=== PATIENT | male | born 1975 | race Caucasian/White ===

== ENCOUNTER 2023-10-07 16:08 | Emergency (ER) | payer BC, SELFPAY ==
[2023-10-07] VITALS (7 sets, daily range): BP systolic 116–141; BP diastolic 73–94; BMI 26.8
--- NOTE | 2023-10-07 16:38 | ED.GENMED ---
History of Present Illness
General
Chief Complaint: Chest Pain
Time Seen by Provider: 10/07/23 16:38
History of Present Illness
History of Present Illness:
HPI: Patient presents with chest discomfort that started 6 days ago. He currently has no pain. It worsens when he changes position of his torso and worsens when he eats spicy foods. He does not have any tightness sensation. He has no exertional
symptoms. He does have rather extensive comorbidities as noted below.
EXAM:
GENERAL: Well appearing in no distress
HEENT: Moist oral mucosa
CARDIOVASCULAR: No murmurs, normal heart rate, regular rhythm, No chest wall tenderness
PULMONARY: No respiratory distress, breath sounds are clear and equal
ABDOMEN: Soft with no peritoneal signs, no tenderness
NEUROLOGIC: Excellent strength all extremities, no coordination deficits
PSYCHIATRIC: Appropriate mental status, normal insight and judgement
EXTREMITIES: Nontender, no edema, moves all extremities equally
SKIN: No rash, no lesions
TIME OF INITIAL ENCOUNTER: 4:45 PM
NUMBER AND COMPLEXITY OF PROBLEMS ADDRESSED AT THE ENCOUNTER
� Chronic conditions affecting care: Last kidney transplant 2009, CKD on HD, high blood pressure, hyperlipidemia, borderline diabetes
� Acute Exacerbation and/or Progression of Chronic Illness: This is an acute problem
� Differential Diagnosis includes: Noncardiac chest pain, GI etiology, esophagitis/gastritis, ACS
AMOUNT AND/OR COMPLEXITY OF DATA TO BE REVIEWED AND ANALYZED
� I performed an independent evaluation of and my interpretation is:
EKG: Sinus 65, left axis deviation, LVH with associated ST abnormality which includes biphasic abnormality in V3
CT:
X-rays: Chest x-ray unremarkable
Laboratory Studies: Troponin 0.609, creatinine 1.9, glucose normal, CBC unremarkable
Other:
� Review of other/old records: I reviewed records on the patient's [employer] vivian. I reviewed the cardiology note from 01/07/2021 which indicates that the patient's EKG at that time showed LVH with associated ST abnormality that was
felt to be related to strain as opposed to ischemia. An echo showed normal LV size but did have some concentric LVH of the wall
� Clinical information was obtained by an independent historian: I spoke to at bedside
� Prescriptions/Medications Considered but not given:
� Further testing considered but not performed:
RISK OF COMPLICATIONS AND/OR MORBIDITY OR MORTALITY OF PATIENT MANAGEMENT
� Social determinants of health affecting care: Lives at home with family
� Discussion with other providers: Discussed case with Dr. Manzo at [facility] as all of his care is at [facility]. He did send an old EKG which does show some inferolateral T wave abnormality likely related to LVH. He also states
that the patient had a nondiagnostic stress test in the past.
� Escalation of care including admission/observation vs risk of discharge considered: Since he is a kidney transplant patient with all care at [facility] including cardiology, Dr. Manzo accepts to his service for further evaluation
as he does have an elevated troponin. The troponin may be related to his CKD however I have no old troponins to compare and the troponin does seem a little bit higher than expected for just renal disease. I did order an aspirin for him to take
with further management at [facility]. He remains comfortable without current chest pain at 6:30 PM.
Phy Exam
Physical Exam
Physical Exam:
See HPI
Scores
Heart Score for Chest Pain Patients
STEMI patient?: Not applicable
Course
Orders/Labs/Results
Orders:
Orders
10/07/23 16:22
EKG [Electrocardiogram (*1)] Urgent
Reason for Study: Chest Pain
EKG- Treatment ONCE
10/07/23 16:40
CR Chest - 2 Views Urgent
Comment:
Reason For Exam: cp
10/07/23 16:48
Complete Blood Count/With Diff Urgent
Comprehensive Metabolic Panel Urgent
Magnesium Urgent
Troponin I Urgent
10/07/23 17:50
Aspirin 325 mg PO NOW STA
Abnormal Lab Results
10/07/23
16:48
Absolute Monos (auto) 0.9 H 10^3/uL
(0.1-0.6)
Chloride 108 H mmol/L
(98-107)
BUN 38 H mg/dl
(9-20)
Creatinine 1.9 H mg/dL
(0.7-1.3)
Calcium 10.7 H mg/dl
(8.4-10.2)
Troponin I 0.609 H* ng/ml
10/07/23 16:48
10/07/23 16:48
Vital Signs
Initial and Last Documented VS:
Initial Vital Signs
Temp Pulse Resp BP Pulse Ox
98.2 F 71 18 141/94 98
10/07/23 16:18 10/07/23 16:18 10/07/23 16:18 10/07/23 16:18 10/07/23 16:18
Last Documented Vital Signs
Temp Pulse Resp BP Pulse Ox
98.7 F 67 12 127/85 98
10/07/23 18:55 10/07/23 19:00 10/07/23 19:00 10/07/23 19:00 10/07/23 18:55
*Critical Care Note
Total Time (30-74mins, 75-104mins- exclusive of procedures): Not Applicable
ED Attending Note
-
Portions of this chart may have been created with voice recognition software.� Occasional wrong word or��sound alike� substitutions may have occurred due to the inherent limitations of voice recognition software.
Discharge Plan
Departure
Patient Disposition: Acute Care Hospital
Date of Disposition: 10/07/23
Time of Disposition: 18:04
Patient with high blood pressure during this ER visit?: Yes
Discharge Problem:
Elevated troponin level
Prescriptions:
No Action
carvedilol 25 mg Tablet
25 mg PO Q12H
prednisone 5 mg Tablet
5 mg PO DAILY
amlodipine 5 mg Tablet
5 mg PO BID
acetaminophen [Tylenol Extra Strength] 500 mg Tablet
1,000 mg PO BID
acitretin 25 mg Capsule
25 mg PO DAILY
allopurinol 300 mg Tablet
150 mg PO HS
albuterol sulfate 90 mcg/actuation Hfa Aerosol Inhaler
2 puff INHALATION R DAILYPRN PRN (Reason: sob)
tacrolimus 1 mg Capsule
3 mg PO BID
mycophenolate sodium 180 mg Tablet,Delayed Release (Dr/Ec)
180 mg PO Q12H
fenofibrate 160 mg Tablet
160 mg PO DAILY
Referrals:
Heriberto Church MD [Family Provider] -
Hospital Transfer
Other hospital: [facility]
I certify that the patient requires transfer: Yes
Discussed case with accepting physician: Dr. Ant Prieto
Reason for transfer: higher level of care and continuity of care PCP
Interventions
Interventions:
*Risk Screen - Suicide Last Done: 10/07/23 16:35
*General Assessment Last Done: 10/07/23 16:35
*Neglect/Abuse Screening Last Done: 10/07/23 16:35
ED- Fall Risk Assessment Last Done: 10/07/23 16:35
*ED COVID-19 Vaccine History Last Done: 10/07/23 16:35
ED- Cardiac Assessment Last Done: 10/07/23 19:01
Discharge Date and Time
Print Language: TURKISH
[2023-10-07 17:04] LABS: % Basophils 0.5 % (0-2); % Eosinophils 1.6 % (0-6); % Immature Granulocytes 0.4 % (0-0.5); % Lymphocytes 26.3 % (20.5-51.1); % Monocytes 8.3 % (1.7-9.3); % Neutrophils 62.9 % (42.2-75.2); Absolute Basophils 0.1 10^3/uL (0-0.2); Absolute Eosinophils 0.2 10^3/uL (0-0.7); Absolute Lymphocytes 2.7 10^3/uL (1.2-3.4); Absolute Monocytes 0.9 10^3/uL (0.1-0.6); Absolute Neutrophils 6.5 10^3/uL (1.4-6.5); Hemoglobin 14.7 g/dL (13.0-18.0); Mean Corp Hgb Conc. 33.4 g/dL (33.0-37.0); Mean Corpuscular Hgb 30.4 pg (27.0-31.0); Mean Corpuscular Volume 91.1 fL (80.0-94.0); Mean Platelet Volume 9.5 fL (7.4-10.4); Nucleated Red Blood Cells % 0 % (-); Platelet Count 236 10^3/uL (130-400); Red Blood Cell Count 4.83 10^6/uL (4.70-6.10); Red Cell Dist. Width 13.2 % (11.5-14.5); White Blood Cell Count 10.3 10^3/uL (4.8-10.8)
[2023-10-07 17:21] LABS: ALT (SGPT) 22 U/L (0-50); AST (SGOT) 27 U/L (17-59); Albumin 4.9 g/dl (3.5-5.0); Alkaline Phosphatase 52 U/L (38-126); Blood Urea Nitrogen 38 mg/dl (9-20); Calcium 10.7 mg/dl (8.4-10.2); Carbon Dioxide 24 mmol/L (22-30); Chloride 108 mmol/L (98-107); Estimated Creatinine Clearance 42 ml/min; Glucose 95 mg/dl (70-99); Magnesium 1.7 mg/dl (1.6-2.3); Potassium 4.6 mmol/L (3.5-5.1); Sodium 142 mmol/L (135-145); Total Bilirubin 0.4 mg/dl (0.2-1.3); Total Protein 7.6 g/dl (6.3-8.2); eGFR 43.24
[2023-10-07 17:31] LABS: Troponin I 0.609 ng/ml
[2023-10-07] MEDS: ASPIRIN 325 MG PO (17:55)
== END 2023-10-07 21:39 | disposition short-term general hospital (02) ==
LOC: EMR 16:08
PROVIDERS: EMERGENCY PHYSICIAN Emergency Medicine; FAMILY PHYSICIAN Internal Medicine
DX: R07.89 Other chest pain (principal); R79.89 Other specified abnormal findings of blood chemistry; I12.0 Hypertensive chronic kidney disease with stage 5 chronic kidney disease or end stage renal disease; N18.6 End stage renal disease; Z99.2 Dependence on renal dialysis; E78.5 Hyperlipidemia, unspecified; R73.03 Prediabetes; Z94.0 Kidney transplant status; Z88.8 Allergy status to other drugs, medicaments and biological substances
CPT/HCPCS: 99285; 71046; 80053; 83735; 84484; 85025; 93005

== ENCOUNTER 2025-03-30 23:54 | Emergency (ER) | payer BC, SELFPAY ==
[2025-03-31 00:19] VITALS: BP 175/104
[2025-03-31 00:54] LABS: Hematocrit 32.7 % (39.0-52.0); Hemoglobin 10.3 g/dL (13.0-18.0); Mean Corp Hgb Conc. 31.5 g/dL (33.0-37.0); Mean Corpuscular Volume 87.7 fL (80.0-94.0); Nucleated Red Blood Cells % 0 % (-); Platelet Count 285 10^3/uL (130-400); Red Cell Dist. Width 14.6 % (11.5-14.5)
[2025-03-31 01:13] LABS: ALT (SGPT) 23 U/L (0-50); AST (SGOT) 26 U/L (17-59); Albumin 3.8 g/dl (3.5-5.0); Alkaline Phosphatase 71 U/L (38-126); Blood Urea Nitrogen 69 mg/dl (9-20); Calcium 9.7 mg/dl (8.4-10.2); Carbon Dioxide 19 mmol/L (22-30); Chloride 108 mmol/L (98-107); Glucose 86 mg/dl (70-99); Potassium 5.3 mmol/L (3.5-5.1); Sodium 137 mmol/L (135-145); Total Protein 6.1 g/dl (6.3-8.2); eGFR 25.87
[2025-03-31] MEDS: LOW STRENGTH ASPIRIN 324 MG PO (01:17)
[2025-03-31 01:20] VITALS: BP 144/84; BMI 27.5
[2025-03-31 01:32] LABS: Troponin I < 0.012 ng/ml
[2025-03-31 01:36] LABS: Lipase 66 U/L (23-300)
[2025-03-31] MEDS: NSS 1000 IV (02:08)
[2025-03-31 02:13] VITALS: BP 134/74
[2025-03-31 03:00] VITALS: BP 123/86
[2025-03-31 03:36] LABS: Troponin I < 0.012 ng/ml
[2025-03-31 04:00] VITALS: BP 136/90
--- NOTE | 2025-03-31 04:01 | ED.GENMED ---
History of Present Illness
General
Chief Complaint: Chest Pain
Source: patient and previous hospital records
Exam Limitations: none
Time Seen by Provider: 03/31/25 00:36
Nursing documentation reviewed up to this point in time: agreed with
History of Present Illness
History of Present Illness:
HISTORY OF PRESENT ILLNESS
The patient is a 49-year-old male with a significant past medical history including CAD status post three-vessel CABG October 2023, who presents with upper abdominal pain, described as feeling 'tight' and 'tender,' which has been occurring
intermittently for the past three days. The patient mentions the sensation could be 'heartburn' or possibly 'gas.' This pain has been noted to persist somewhat since his surgery October 2023. He also notes some left upper chest discomfort that has
been intermittent over the past 3 days and again intermittent since his heart surgery October 2023. The discomfort does not appear to be exacerbated or relieved by meals, activity, or positioning. The patient denies associated symptoms of significant
nausea or shortness of breath but reports a history of heartburn that has worsened after previous surgery. The patient also mentioned that taking antacid medication provided no significant relief.
The patient had a myocardial infarction in September 2023, with elevated troponin levels noted at that time. The patient underwent coronary artery bypass surgery was in October 2023. The patient has undergone stress cardiac testing approximately six months
ago, with indications that results were reassuring at that time.
He has history of chronic kidney disease status post renal transplant x 3, at the most recent transplant 2009. He follows with specialist at [facility].
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
He denies dysuria and urgency and or hematuria. He has not had a fever and or chills. No cough no shortness of breath. No dizziness nor lightheadedness. No leg pain or swelling.
Phy Exam
Physical Exam
Physical Exam:
GENERAL: 49-year-old gentleman appears his stated age, awake and alert, very mildly anxious/apprehensive but easily communicative and otherwise in no acute distress.
EYE: anicteric
NECK: Supple, nontender, no meningismus, no significant adenopathy.
ENT: oral mucosa is moist. No rhinorrhea.
CARDIAC: Regular rate and rhythm. no murmur. No palpable chest wall tenderness.
LUNGS: Clear breath sounds bilaterally, no acute respiratory distress, no wheezes/rales/rhonchi
ABDOMEN: Rotund, soft, nondistended, minimal tenderness epigastric region, no r/g, no cvat. normoactive BS.
NEUROLOGICAL: Alert and oriented x3, no focal neuro deficits.
SKIN: Warm and dry, normal color, skin intact. No rash.
MUSCULOSKELETAL: No C/C/E. peripheral pulses are full and equal b/l. No palpable tenderness.
PSYCH: Normal and appropriate interaction.
Scores
Heart Score for Chest Pain Patients
STEMI patient?: No
History: Slightly or Non-Suspicious
ECG: Nonspecific Repolarization
Age: >45 - <65 years
Risk Factors: >/= 3 Risk Factors or History of CAD
Troponin: </= Normal Limit
Heart Score for Chest Pain Patients: 4
Heart Score Risk: 20.3% MACE over next 6 weeks
Course
Orders/Labs/Results
Orders:
Orders
03/31/25 00:09
EKG [Electrocardiogram (*1)] Urgent
Reason for Study: Chest Pain
EKG- Treatment ONCE
03/31/25 00:12
Cardiac Monitoring- Treatment ONCE
IV Insert/Care/Rem.- Treatment PRN
CR Chest - 2 Views Urgent
Comment:
Reason For Exam: respiratory distress
O2 Therapy [RESP] Urgent
Titrate/Wean O2 to maintain O2 sat greater than (%): 93
Special Instructions: TO MAINTAIN CONTINUOUS O2 SATS >/= 93%
Pulse Ox/cont/shift [RESP] Urgent
Quantity: 1
Special Instructions: continuous pulse ox
03/31/25 00:32
Complete Blood Count/With Diff Urgent
Comprehensive Metabolic Panel Urgent
Lipase Urgent
Comment: ADD ON
NT-proBNP Urgent
Troponin I Urgent
03/31/25 01:07
Add On- LAB Urgent
Tests Added?: lipase
Aspirin Chewable [Low Strength Aspirin] 324 mg PO NOW STA
03/31/25 02:00
CT Abd/pel Without Iv Or Oral Urgent
Comment:
Reason For Exam: mid to L sided abdominal pain x 3 d. renal transpl
03/31/25 02:01
EKG- Treatment ONCE
03/31/25 02:02
0.9% Sodium Chloride 1000 ml [Nss] 1,000 ml IV BOLUS
03/31/25 02:30
Electrocardiogram (*1) Urgent
Reason for Study: Chest Pain
03/31/25 02:31
Troponin I Urgent
Abnormal Lab Results
03/31/25
00:32
WBC 13.8 H 10^3/uL
(4.8-10.8)
RBC 3.73 L 10^6/uL
(4.70-6.10)
Hgb 10.3 L g/dL
(13.0-18.0)
Hct 32.7 L %
(39.0-52.0)
MCHC 31.5 L g/dL
(33.0-37.0)
RDW 14.6 H %
(11.5-14.5)
Abs Immat Gran (auto) 0.2 H 10^3/uL
(0-0.05)
Absolute Neuts (auto) 9.5 H 10^3/uL
(1.4-6.5)
Absolute Monos (auto) 1.2 H 10^3/uL
(0.1-0.6)
Immature Gran % 1.4 H %
(0-0.5)
Lymphocytes % 18.3 L %
(20.5-51.1)
Potassium 5.3 H mmol/L
(3.5-5.1)
Chloride 108 H mmol/L
(98-107)
Carbon Dioxide 19 L mmol/L
(22-30)
BUN 69 H mg/dl
(9-20)
Creatinine 2.9 H mg/dL
(0.7-1.3)
Total Protein 6.1 L g/dl
(6.3-8.2)
03/31/25 00:32
03/31/25 00:32
Vital Signs
Initial and Last Documented VS:
Initial Vital Signs
Temp Pulse Resp BP Pulse Ox
98.4 F 77 20 175/104 99
03/31/25 00:19 03/31/25 00:19 03/31/25 00:19 03/31/25 00:19 03/31/25 00:19
Last Documented Vital Signs
Temp Pulse Resp BP Pulse Ox
98.4 F 74 18 136/90 96
03/31/25 00:19 03/31/25 04:15 03/31/25 04:15 03/31/25 04:00 03/31/25 04:15
MDM/Problems Addressed
Differential Diagnosis Includes:
DIFFERENTIAL DIAGNOSIS
The Differential Diagnosis includes, in no particular order, and is not limited to:
1. Gastroesophageal reflux disease (GERD)
2. Gastritis
3. Peptic ulcer disease
4. Cholecystitis
5. Acute coronary syndrome
6. Costochondritis
7. Pancreatitis
8. Aortic dissection (less likely given presentation)
9. Intestinal gas accumulation or obstruction
10. Myocardial ischemia (given cardiac history and risk factors)
MDM/Problems Addressed:
PROBLEM LIST
Acute:
1. Abdominal pain with complaints of tightness and tenderness
2. History of worsening heartburn after surgery
3. Left upper chest discomfort, ongoing issue since CABG October 2023.
Chronic:
1. Coronary artery disease with a past myocardial infarction
2. History of three kidney transplants
3. hypertension
4. hyperlipidemia
5. diabetes, diet controlled
EKG shows normal sinus rhythm with flipped T waves laterally, similar and unchanged from previous.
Labs are pending including troponin, LFTs, lipase.
Will consider imaging depending on results.
Chronic conditions affecting care: DM, HTN, CAD, Asthma and Kidney disease
Acute Exacerbation and/or Progression of Chronic Illness: Kidney disease
*Radiology
Radiology exam reviewed: preliminary read by ED provider (Chest x-ray is unremarkable. Clear lung [place].) and radiology read reviewed
*Pulse Oximetry
SaO2: 97
Oxygen Mode of Delivery: Room air
Patient hypoxic: no
*EKG
Interpreted by ED Provider?: Yes
Interpretation: abnormal
Comparison EKG: no changes (Unchanged from previous September 2023)
Rate: normal
[place]: left axis deviation
Interval: normal interval
QRS Pattern: normal QRS
Ischemia: T-wave inversion
*Supervisor [employer] Removal Interpretation
Rate: normal
Interpretation: normal
Rhythm: sinus
*Critical Care Note
Total Time (30-74mins, 75-104mins- exclusive of procedures): Not Applicable
Update Note
Update Note:
Initial troponin is negative. Will plan to repeat 2 hours after the first.
Creatinine has trended up significantly compared to previous, currently 2.9, previously 1.9. Elevated BUN as well. Mild anemia. LFTs, lipase are normal.
Patient notes similar sporadic fluctuations in creatinine and generally related to poor oral intake. Potassium minimally elevated, likely related to acute kidney injury and I suspect related to poor oral intake over the past day or 2.
No evidence of hyperkalemia on EKG and he remains hemodynamically stable.
BNP mildly elevated at thousand but he continues to deny shortness of breath or dyspnea on exertion and chest x-ray is unremarkable. Clear lung [place].
Will encourage oral fluids and will add IV fluids.
Due to continued upper abdominal discomfort we will check CT abdomen pelvis without contrast.
04:00
CAT scan shows moderate wall thickening of the proximal duodenum with surrounding fat stranding suggestive of duodenitis versus pancreatitis. With normal LFTs and normal lipase, pancreatitis is doubtful.
There is no bowel obstruction or inflammation. Normal appendix. No free air nor free fluid. Left lower quadrant transplant kidney without hydronephrosis nor nephrolithiasis.
Repeat troponin remains negative.
I suspect an element of gastroduodenitis. Patient is chronically maintained on Pepcid 20 mg daily which is appropriately renally dosed.
Recommend he continue Pepcid. Will add a short course of Carafate.
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
ED Attending Note
-
Portions of this chart may have been created with voice recognition software.� Occasional wrong word or��sound alike� substitutions may have occurred due to the inherent limitations of voice recognition software.
Discharge Plan
Departure
Patient Disposition: Home (Routine Discharge)
Date of Disposition: 03/31/25
Time of Disposition: 04:10
Patient with high blood pressure during this ER visit?: No
Condition: Good
Discharge Problem:
Nonspecific chest pain, Acute gastroduodenitis, Acute renal failure superimposed on chronic kidney disease
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
Prescriptions:
New
sucralfate 100 mg/mL suspension
1 g PO QIDPRN PRN (Reason: upper abdominal pain) Qty: 473 0RF
No Action
carvedilol 25 mg Tablet
25 mg PO Q12H
prednisone 5 mg Tablet
5 mg PO DAILY
amlodipine 5 mg Tablet
5 mg PO BID
acetaminophen [Tylenol Extra Strength] 500 mg Tablet
1,000 mg PO BID
acitretin 25 mg Capsule
25 mg PO DAILY
allopurinol 300 mg Tablet
150 mg PO HS
albuterol sulfate 90 mcg/actuation Hfa Aerosol Inhaler
2 puff INHALATION R DAILYPRN PRN (Reason: sob)
tacrolimus 1 mg Capsule
3 mg PO BID
mycophenolate sodium 180 mg Tablet,Delayed Release (Dr/Ec)
180 mg PO Q12H
fenofibrate 160 mg Tablet
160 mg PO DAILY
Referrals:
Heriberto Church MD [Family Provider] - Call in 1-3 days for appt
Interventions
Interventions:
*General Assessment Last Done: 03/31/25 02:15
*Neglect/Abuse Screening Last Done: 03/31/25 02:00
*ED COVID-19 Vaccine History Last Done: 03/31/25 00:19
*ED Influenza Vaccine History Last Done: 03/31/25 00:19
[facility] Fall Risk Assessment Tool Last Done: 03/31/25 02:14
*Risk Screen - Suicide (C-SSRS) Last Done: 03/31/25 02:16
*Nursing Disposition Last Done: 03/31/25 04:29
ED- Cardiac Assessment Last Done: 03/31/25 01:00
Discharge Date and Time
Discharge Date/Time: 03/31/25 04:34
Print Language: SLOVENIAN
== END 2025-03-31 04:34 | disposition home or self-care (01) ==
LOC: EMR 23:54
PROVIDERS: EMERGENCY PHYSICIAN Emergency Medicine; FAMILY PHYSICIAN Internal Medicine
DX: R07.9 Chest pain, unspecified (principal); K29.90 Gastroduodenitis, unspecified, without bleeding; N17.9 Acute kidney failure, unspecified; I12.9 Hypertensive chronic kidney disease with stage 1 through stage 4 chronic kidney disease, or unspecified chronic kidney disease; N18.9 Chronic kidney disease, unspecified; E11.22 Type 2 diabetes mellitus with diabetic chronic kidney disease; I25.10 Atherosclerotic heart disease of native coronary artery without angina pectoris; I25.2 Old myocardial infarction; J45.909 Unspecified asthma, uncomplicated; Z94.0 Kidney transplant status
CPT/HCPCS: 96360; 99285; 71046; 74176; 80053; 83690; 83880; 84484; 85025; 93005